=== PATIENT | male | born 1965 | race Caucasian/White ===

== ENCOUNTER 2016-12-09 07:34 | Day surgery (SDC) | payer MEDICAID ==
[~2016-12-09] VITALS: Ht 172.7 cm; Wt 63.5 kg
[~2016-12-09 07:34] MED LIST: CETIRIZINE10 MG PO; CIALIS20 MG PO; COMBIVENT RESPIMAT IN; DEXTROAMPHET PO; FERROUS SULF325 M2 PO
[2016-12-09 09:32] VITALS: BP 134/89
== END 2016-12-09 09:40 | disposition home or self-care (01) | DRG 951 ==
LOC: ENDO 07:34
PROVIDERS: ATTEND Surgery
PROC: 0DJD8ZZ Inspection of Lower Intestinal Tract, Via Natural or Artificial Opening Endoscopic (ICD-10-PCS; principal; 2016-12-09)
DX: Z12.11 Encounter for screening for malignant neoplasm of colon (principal)